=== PATIENT | female | born 1940 | race African-American/Black ===

== ENCOUNTER 2018-07-17 14:12 | Emergency (ER) | payer OTHER ==
[~2018-07-17] VITALS: Ht 165.1 cm; Wt 68.0 kg
[~2018-07-17 14:12] MED LIST: AMLO10TA80 PO; ASPI-1159 PO; ATEN50TA PO; CHOL200074 PO; LEVO88TA7 PO; LOVA10TA54 PO; MEMA10TA2 PO; MEMA5TAB7 PO; QUET25TA PO; TRAZ-212 PO
[2018-07-17 14:55] LABS: BASOPHILS % 0.2 % (0.0-2.0); EOSINOPHILS % 0.4 % (0.0-5.0); HEMATOCRIT. 37.4 % (36.0-48.0); HEMOGLOBIN. 12.4 g/dL (12.0-16.0); LYMPHOCYTES % 17.4 % (20.0-50.0); MEAN CORPUSCULAR HEMOGLOBIN 30.4 pg (28.0-32.0); MEAN CORPUSCULAR VOLUME 91.2 fL (81.0-99.0); MONOCYTES % 6.3 % (2.0-8.0); NEUTROPHILS % 75.7 % (40.0-76.0); PLATELET 221 x1000/uL (130-400); RED CELL DISTRIBUTION WIDTH 15.6 % (11.6-14.6)
[2018-07-17 15:03] LABS: CHLORIDE 107 mEq/L (98-107)
[2018-07-17 18:20] LABS: CLARITY URINE CLEAR (CLEAR); COLOR URINE YELLOW (YELLOW); KETONES URINE 2+ (NEGATIVE); LEUKOCYTE ESTERASE URINE NEGATIVE (NEGATIVE); NITRITE URINE NEGATIVE (NEGATIVE); OCCULT BLOOD URINE TRACE (NEGATIVE); PH URINE 6.5 (4.5-8.0); PROTEIN URINE 1+ (NEGATIVE); SPECIFIC GRAVITY URINE 1.018 (1.005-1.030)
[2018-07-17 19:15] VITALS: BP 114/58
== END 2018-07-17 19:50 | disposition short-term general hospital (02) ==
LOC: ER 14:12 → CANBEDREQ 22:00
DX: R41.82 Altered mental status, unspecified (principal); R00.1 Bradycardia, unspecified; I10 Essential (primary) hypertension; Z79.82 Long term (current) use of aspirin; Z79.899 Other long term (current) drug therapy
CPT/HCPCS: 36415; 71045; 83880; 84484; 93005; 99285